=== PATIENT | female | born 1990 | race Two or more races ===

== ENCOUNTER → 2017-02-13 | Outpatient (CLI) | payer MEDICAID ==
[~2017-02-13] MED LIST: MELATONIN10 M2 PO
== END | disposition short-term general hospital (02) ==
LOC: CLOBGYN 11:10
DX: N91.5 Oligomenorrhea, unspecified (principal)

== ENCOUNTER → 2017-03-20 | Outpatient (CLI) | payer MEDICAID | END | disposition short-term general hospital (02) | LOC: CLOBGYN 02:19 | DX: N91.5 Oligomenorrhea, unspecified (principal) ==